=== PATIENT | male | born 1955 | race Caucasian/White ===

== ENCOUNTER 2020-09-05 08:43 | Inpatient (IN) | payer MEDICARE, BC ==
[2020-08-29 13:43] LABS: LYMPHOCYTES # (AUTO) 1.7 X10'3 (1.1-4.8); PRE OP HEMOGLOBIN 14.9 g/dL (14.0-17.9); RED CELL DISTRIBUTION WIDTH 13.5 % (11.5-14.5)
[2020-08-29 13:45] LABS: BASOPHILS % (AUTO) 0.3 % (0-1); EOSINOPHILS # (AUTO) 0.1 X10'3 (0-0.9); EOSINOPHILS % (AUTO) 0.4 % (0-6); LYMPHOCYTES % (AUTO) 10.8 % (21-51); MEAN CORPUSCULAR HEMOGLOBIN 30.4 PG (27.0-31.0); MEAN CORPUSCULAR HGB CONC 33.8 g/dL (33.0-36.5); MEAN CORPUSCULAR VOLUME 89.9 FL (78-98); MEAN PLATELET VOLUME 7.5 FL (7.4-10.4); MONOCYTES % (AUTO) 6.4 % (2-12); NEUTROPHILS # (AUTO) 12.9 X10'3 (1.8-7.7); NEUTROPHILS % (AUTO) 82.1 % (42-75); PRE OP PLATELET COUNT 221 X10'3 (140-440)
[2020-08-29 13:57] LABS: ALBUMIN 4.2 G/DL (3.4-5.0); ALBUMIN/GLOBULIN RATIO 1.2 (1.1-1.5); ALKALINE PHOSPHATASE 70 IU/L (46-116); BLOOD UREA NITROGEN 16 MG/DL (7-18); BUN/CREATININE RATIO 15.5 (5.4-32.0); CALCIUM 8.9 MG/DL (8.5-10.1); CHLORIDE 106 MMOL/L (99-107); CREATININE 1.03 MG/DL (0.60-1.10); PRE OP ALT 23 U/L (30-65); PRE OP ANION GAP 9 (8-16); PRE OP AST 16 U/L (10-37); PRE OP BILIRUB, TOTAL 0.6 MG/DL (0.0-1.0); PRE OP GLUCOSE 96 MG/DL (70-104); PRE OP SODIUM 143 MMOL/L (135-145); TOTAL CARBON DIOXIDE 28.5 MMOL/L (24-32); TOTAL PROTEIN 7.7 G/DL (6.4-8.2); eGFR 72 ML/MIN
[2020-09-02 08:58] LABS: BASOPHILS # (AUTO) 0.1 X10'3 (0-0.2); BASOPHILS % (AUTO) 0.5 % (0-1); EOSINOPHILS # (AUTO) 0.1 X10'3 (0-0.9); EOSINOPHILS % (AUTO) 1.6 % (0-6); LYMPHOCYTES # (AUTO) 2.3 X10'3 (1.1-4.8); LYMPHOCYTES % (AUTO) 25.3 % (21-51); MEAN CORPUSCULAR HEMOGLOBIN 30.7 PG (27.0-31.0); MEAN CORPUSCULAR HGB CONC 34.2 g/dL (33.0-36.5); MEAN CORPUSCULAR VOLUME 89.9 FL (78-98); MEAN PLATELET VOLUME 7.3 FL (7.4-10.4); MONOCYTES # (AUTO) 0.8 X10'3 (0-0.9); MONOCYTES % (AUTO) 9.2 % (2-12); NEUTROPHILS # (AUTO) 5.8 X10'3 (1.8-7.7); NEUTROPHILS % (AUTO) 63.4 % (42-75); PRE OP HEMATOCRIT 44.2 % (42.0-52.0); PRE OP HEMOGLOBIN 15.1 g/dL (14.0-17.9); PRE OP PLATELET COUNT 220 X10'3 (140-440); RED BLOOD COUNT 4.92 X10'6 (4.70-6.10); RED CELL DISTRIBUTION WIDTH 13.4 % (11.5-14.5)
[2020-09-05] VITALS (16 sets, daily range): BP systolic 143–168; BP diastolic 78–100
[~2020-09-05] VITALS: Ht 177.8 cm; Wt 85.7 kg
[~2020-09-05 08:43] MED LIST: ALLO100T PO; AMIT10TA6 PO; ASPI-1265 PO; ATOR10TA70 PO; BAC10T PO; DULO60CA65 PO; GABA300T25 PO; IBUP-1984 PO; LOSA100T57 PO; MELO-102 PO; OMEP40CA13 PO; PSYL3.4P5 PO; TEST5GEL2 TOP; ZOLP5TAB8 PO; ceFAZolin 2gm in dextrose, iso 50 ML IV ONE; famotidine 20mg tablet PO ONE; ringers solution, lacted 1,000 ML IV SCH; tranexamic acid inj. 860 MG in normal saline 100ml IV soln 100 ML IV ONE; vancomycin 1,500 MG in NS 300ml IV soln IV ONE
[2020-09-05] MEDS ORDERED: ondansetron/PF 4mg/2ml inj IV PRN ×2 (10:20→14:15)
[2020-09-05] MEDS ORDERED: proCHLORperazine 10 MG/2 ml inj IV PRN (10:20)
[2020-09-05] MEDS ORDERED: morphine 2 MG/ML inj. syringe IV PRN (10:20)
[2020-09-05] MEDS ORDERED: morphine 4 MG/ML inj SYRINge IV PRN (10:20)
[2020-09-05] MEDS ORDERED: meperidine/PF 25mg/ml syringe IV PRN ×3 (10:20)
[2020-09-05] MEDS ORDERED: ringers solution, lacted 1,000 ML IV SCH (10:20)
[2020-09-05 10:44] LABS: BASOPHILS % (AUTO) 0.5 % (0-1); EOSINOPHILS # (AUTO) 0.1 X10'3 (0-0.9); EOSINOPHILS % (AUTO) 0.6 % (0-6); HEMATOCRIT 41.3 % (42.0-52.0); HEMOGLOBIN 14.2 g/dl (14.0-17.9); LYMPHOCYTES # (AUTO) 1.8 X10'3 (1.1-4.8); LYMPHOCYTES % (AUTO) 19.5 % (21-51); MEAN CORPUSCULAR HEMOGLOBIN 30.7 PG (27.0-31.0); MEAN CORPUSCULAR HGB CONC 34.3 g/dL (33.0-36.5); MEAN CORPUSCULAR VOLUME 89.5 FL (78-98); MEAN PLATELET VOLUME 7.4 FL (7.4-10.4); MONOCYTES # (AUTO) 0.7 X10'3 (0-0.9); NEUTROPHILS # (AUTO) 6.6 X10'3 (1.8-7.7); NEUTROPHILS % (AUTO) 71.4 % (42-75); PLATELET COUNT 187 X10'3 (140-440); RED BLOOD COUNT 4.61 X10'6 (4.70-6.10); RED CELL DISTRIBUTION WIDTH 13.8 % (11.5-14.5); WHITE BLOOD COUNT 9.2 X10'3 (4.5-11.0)
[2020-09-05] MEDS ORDERED: HYDROcodone/acetaminophen 10/325mg tab PO ONE (11:00)
[2020-09-05] MEDS ORDERED: ROPIVAcaine 0.5% (5mg/ml) 30ml vial ONE ×2 (11:13→11:46)
[2020-09-05] MEDS ORDERED: ketorolac trometh. 30mg/ml inj. ONE (11:13)
[2020-09-05] MEDS ORDERED: MIDAZolam 5mg/5ml vial ONE (11:46)
[2020-09-05] MEDS ORDERED: propofol inj 20 ML IV ONE (11:46)
[2020-09-05] MEDS ORDERED: fentaNYL/PF 50MCG/1 ML 2ML syringe ONE (11:46)
[2020-09-05] MEDS ORDERED: LIDOcaine 1%/PF 5ML 10 MG/ML VIAL ONE (12:07)
[2020-09-05] MEDS ORDERED: sevoflurane 250ml liquid IH ONE (12:07)
[2020-09-05] MEDS ORDERED: dexamethasone sod phosphate 4mg/ml inj. ONE (12:48)
[2020-09-05] MEDS ORDERED: ondansetron/PF 4mg/2ml inj ONE (12:48)
[2020-09-05] MEDS ORDERED: ROPIVAcaine 0.2% (10 MG/5 ML) BOLUS INJECTION INTERSCALE PRN (14:00)
[2020-09-05] MEDS ORDERED: ROPIVAcaine 0.2%/PF PUMP/bolus 550 ML INTERSCALE SCH (14:00)
[2020-09-05] MEDS ORDERED: bisacodyl 10mg suppository rectal RC PRN (14:15)
[2020-09-05] MEDS ORDERED: oxyCODONE IR 5mg (immed. release) tablet PO PRN (14:15)
[2020-09-05] MEDS ORDERED: HYDROmorphone 1 mg/ml syringe IV PRN (14:15)
[2020-09-05] MEDS ORDERED: HYDROmorphone inj. 0.5 MG/0.5 ML DISP.SYRIN IV PRN (14:15)
[2020-09-05] MEDS ORDERED: tranexamic acid inj. 0 MG in normal saline 100ml IV soln 100 ML IV ONE (14:15)
[2020-09-05] MEDS ORDERED: diphenhydrAMINE 25mg capsule PO PRN ×2 (14:15)
[2020-09-05] MEDS ORDERED: magnesium hydroxide 30ml (MOM) UD suspension PO PRN (14:15)
[2020-09-05] MEDS ORDERED: acetaminophen 325mg tablet PO PRN (14:15)
--- NOTE | 2020-09-05 14:30 | NUR ---
Received from OR via BED , accompanied by Anesthesiologist DR ARCOS and report given by Anesthesiolgist. PATIENT A&OX4, DENIES PAIN, V/S WNL, CSM INTACT, 20G PIV LUE, SCD ON, DRESSING TO RIGHT SHOULDER CDI WITH SLING AND ONQ BALL AT 4ML/HR.
--- NOTE | 2020-09-05 15:10 | NUR ---
PATIENT A&OX4, DENIES PAIN, V/S WNL, CSM INTACT, 20G PIV LUE, SCD ON, DRESSING TO RIGHT SHOULDER CDI WITH SLING AND ONQ BALL AT 4ML/HR. PATIENT TAKEN TO 4012B WITH ALL BELONGINGS AND REPORT GIVEN TO [employer] MANAGER WHO HAS TAKEN OVER PATIENT CARE.
[2020-09-05] MEDS: ceFAZolin/D5W- 1GM premix 50 ML IV SCH (15:34)
[2020-09-05] MEDS: potassium cl 20mEq in 1/2 NS 1,000 ML IV SCH (15:34)
[2020-09-05] MEDS ORDERED: vancomycin/NS 1 GM ADD-VANTAGE 250 ML IV SCH (20:00)
[2020-09-05] MEDS ORDERED: losartan 50mg tablet PO SCH (20:45)
[2020-09-05] MEDS ORDERED: atorvastatin 10mg tablet PO SCH (20:45)
[2020-09-05] MEDS ORDERED: gabapentin 300mg capsule PO SCH (20:45)
[2020-09-05] MEDS ORDERED: zolpidem 5mg tablet PO SCH (21:00)
[2020-09-05] MEDS ORDERED: sennosides 8.6mg tablet PO SCH (21:00)
[2020-09-05] MEDS: amitriptyline 10mg tablet PO SCH ×2 (21:00→21:12)
[2020-09-05] MEDS: baclofen 10mg tablet PO SCH (21:10)
[2020-09-05] MEDS: acetaminophen 325mg tablet PO SCH (21:10)
[2020-09-06] MEDS: ceFAZolin/D5W- 1GM premix 50 ML IV SCH (00:38)
[2020-09-06] MEDS: potassium cl 20mEq in 1/2 NS 1,000 ML IV SCH (00:38)
[2020-09-06] MEDS: baclofen 10mg tablet PO SCH ×2 (01:50→09:03)
[2020-09-06] MEDS: acetaminophen 325mg tablet PO SCH ×2 (01:50→09:04)
[2020-09-06 02:00] VITALS: BP 166/100
[2020-09-06] MEDS: oxyCODONE IR 5mg (immed. release) tablet PO PRN ×2 (05:49→10:52)
[2020-09-06 06:00] VITALS: BP 164/115
--- NOTE | 2020-09-06 06:24 | NUR ---
Report given to Magalie CAMPO.
--- NOTE | 2020-09-06 06:36 | NUR ---
Patient in room ORTHO 4012. I have received report from Alvina CAMPO and had the opportunity to ask questions and assume patient care.
[2020-09-06 07:02] VITALS: BP 126/82
[2020-09-06 07:03] VITALS: BP 90/52
[2020-09-06 07:04] VITALS: BP 136/77
[2020-09-06 07:24] LABS: BASOPHILS % (AUTO) 0 % (0-1); EOSINOPHILS % (AUTO) 0 % (0-6); HEMATOCRIT 38.7 % (42.0-52.0); LYMPHOCYTES # (AUTO) 1.9 X10'3 (1.1-4.8); LYMPHOCYTES % (AUTO) 10.6 % (21-51); MEAN CORPUSCULAR HEMOGLOBIN 30.3 PG (27.0-31.0); MEAN CORPUSCULAR HGB CONC 33.5 g/dL (33.0-36.5); MEAN CORPUSCULAR VOLUME 90.5 FL (78-98); MEAN PLATELET VOLUME 7.6 FL (7.4-10.4); MONOCYTES # (AUTO) 1.7 X10'3 (0-0.9); MONOCYTES % (AUTO) 9.5 % (2-12); NEUTROPHILS # (AUTO) 14.5 X10'3 (1.8-7.7); NEUTROPHILS % (AUTO) 79.9 % (42-75); PLATELET COUNT 256 X10'3 (140-440); RED BLOOD COUNT 4.28 X10'6 (4.70-6.10); RED CELL DISTRIBUTION WIDTH 14.1 % (11.5-14.5); WHITE BLOOD COUNT 18.2 X10'3 (4.5-11.0)
[2020-09-06 07:40] LABS: ANION GAP 10 (8-16); CHLORIDE 108 MMOL/L (99-107); SODIUM 144 MMOL/L (135-145); TOTAL CARBON DIOXIDE 25.8 MMOL/L (24-32)
[2020-09-06] MEDS ORDERED: Meloxicam 15 MG TAB PO SCH (08:00)
[2020-09-06] MEDS ORDERED: duloxetine 30mg CAPSULE.DR PO SCH (08:00)
[2020-09-06] MEDS ORDERED: pantoprazole 40mg Tablet.DR PO SCH (08:00)
[2020-09-06] MEDS ORDERED: testosterone 5gm gel packet TD SCH (08:00)
[2020-09-06] MEDS ORDERED: atorvastatin 10mg tablet PO SCH (08:00)
[2020-09-06] MEDS ORDERED: losartan 50mg tablet PO SCH (08:00)
[2020-09-06] MEDS ORDERED: psyllium seed 3.4 gm packet PO SCH (08:00)
[2020-09-06] MEDS ORDERED: amitriptyline 10mg tablet PO SCH (08:00)
[2020-09-06] MEDS ORDERED: allopurinol 100mg tablet PO SCH (08:00)
[2020-09-06] MEDS ORDERED: gabapentin 300mg capsule PO SCH (08:00)
[2020-09-06] MEDS ORDERED: aspirin 325mg tablet PO SCH (08:30)
[2020-09-06 10:00] VITALS: BP 155/84
[2020-09-06] MEDS ORDERED: ASPI-1 PO (10:00)
--- NOTE | 2020-09-06 11:18 | NUR ---
Joint replacement consult: Pt s/p R TSA PO 100% regular breakfast this AM so far good PO post-op. LBM 09/04. No nutrition concerns at this time. Will monitor for additional protein needs post-op. To f/u 09/10 for initial assessment. Addendum: 09/06/20 at [address] Amended: Links added.
--- NOTE | 2020-09-06 11:56 | NUR ---
Patient stable for discharge home today. All DC instructions given to patient and questions answered. IV removed with cannula intact. All belongings send with patient.
[2020-09-07] MEDS ORDERED: acetaminophen 325mg tablet PO PRN (14:15)
== END 2020-09-06 11:30 | disposition home or self-care (01) | DRG 483 ==
LOC: UNDOADMIN 08:43 → PAS IN 08:43 → EDSTATUS 12:30 → PAS IN 14:14 → ORTHO 4S 15:19 → PAS IN 15:19
PROVIDERS: ADMIT Orthopaedic Surgery; ATTEND Orthopaedic Surgery
PROC: 3E0T3BZ Introduction of Anesthetic Agent into Peripheral Nerves and Plexi, Percutaneous Approach (ICD-10-PCS; 2020-09-05)
PROC: 0RRK00Z Replacement of Left Shoulder Joint with Reverse Ball and Socket Synthetic Substitute, Open Approach (ICD-10-PCS; principal; 2020-09-05 12:07)
DX: M19.012 Primary osteoarthritis, left shoulder (principal); M25.512 Pain in left shoulder; M75.102 Unspecified rotator cuff tear or rupture of left shoulder, not specified as traumatic; M75.22 Bicipital tendinitis, left shoulder
CPT/HCPCS: 36415; 80051; 80053; 82948; 85025; 87081; 87635; 93005; 97110; 97116; 97161; 97530; A4618; A7000; C1776; G0378; J0690; J1100; J1885; J2250; J2405; J2704; J2795; J3010; J3370; J3480; J7040; J7120

== ENCOUNTER 2021-03-06 08:12 | Inpatient (IN) | payer MEDICARE, BC ==
[2021-02-28 12:25] LABS: BASOPHILS % (AUTO) 0.4 % (0-1); EOSINOPHILS # (AUTO) 0.1 X10'3 (0-0.9); EOSINOPHILS % (AUTO) 1.4 % (0-6); LYMPHOCYTES # (AUTO) 1.9 X10'3 (1.1-4.8); LYMPHOCYTES % (AUTO) 19.1 % (21-51); MEAN PLATELET VOLUME 7.3 FL (7.4-10.4); MONOCYTES # (AUTO) 0.7 X10'3 (0-0.9); MONOCYTES % (AUTO) 7.5 % (2-12); NEUTROPHILS % (AUTO) 71.6 % (42-75); PRE OP HEMATOCRIT 42.2 % (42.0-52.0); PRE OP HEMOGLOBIN 14.4 g/dL (14.0-17.9); PRE OP PLATELET COUNT 217 X10'3 (140-440); RED BLOOD COUNT 4.64 X10'6 (4.70-6.10); RED CELL DISTRIBUTION WIDTH 14.9 % (11.5-14.5)
[2021-02-28 12:40] LABS: ALBUMIN/GLOBULIN RATIO 1.2 (1.1-1.5); ALKALINE PHOSPHATASE 79 IU/L (46-116); BLOOD UREA NITROGEN 14 MG/DL (7-18); BUN/CREATININE RATIO 14.9 (5.4-32.0); CALCIUM 8.5 MG/DL (8.5-10.1); CHLORIDE 104 MMOL/L (99-107); CREATININE 0.94 MG/DL (0.60-1.10); PRE OP ALT 17 U/L (30-65); PRE OP ANION GAP 9 (8-16); PRE OP AST 17 U/L (10-37); PRE OP BILIRUB, TOTAL 0.5 MG/DL (0.0-1.0); PRE OP GLUCOSE 95 MG/DL (70-104); PRE OP POTASSIUM 3.8 MMOL/L (3.4-5.1); PRE OP SODIUM 142 MMOL/L (135-145); TOTAL CARBON DIOXIDE 29.4 MMOL/L (24-32); TOTAL PROTEIN 7.4 G/DL (6.4-8.2); eGFR 80 ML/MIN
[2021-03-06] VITALS (22 sets, daily range): BP systolic 121–170; BP diastolic 74–95
[~2021-03-06] VITALS: Ht 175.3 cm; Wt 85.5 kg
[~2021-03-06 08:12] MED LIST changes: -ASPI-1265 PO; +ASPI-611 PO; +GABA300C PO; -GABA300T25 PO; -ceFAZolin 2gm in dextrose, iso 50 ML IV ONE; +cefazolin/dext.iso 2gm/100ml IV ONE; +tranexamic acid 650mg tablet PO ONE; -tranexamic acid inj. 860 MG in normal saline 100ml IV soln 100 ML IV ONE
[2021-03-06] MEDS ORDERED: norco PO (11:14)
[2021-03-06] MEDS ORDERED: ROPIVAcaine 0.5% (5mg/ml) 30ml vial ONE ×2 (11:53→12:05)
[2021-03-06] MEDS ORDERED: ketorolac trometh. 30mg/ml inj. ONE (11:53)
[2021-03-06] MEDS ORDERED: fentaNYL/PF 50MCG/1 ML 2ML syringe ONE (12:01)
[2021-03-06] MEDS ORDERED: MIDAZolam 1 MG/ML 5ML VIAL ONE (12:02)
[2021-03-06] MEDS ORDERED: propofol inj 20 ML IV ONE (12:06)
[2021-03-06] MEDS ORDERED: morphine 4 MG/ML inj SYRINge IV PRN (13:40)
[2021-03-06] MEDS ORDERED: ondansetron/PF 4mg/2ml inj IV PRN ×2 (13:40→14:40)
[2021-03-06] MEDS ORDERED: ringers solution, lacted 1,000 ML IV SCH (13:40)
[2021-03-06] MEDS ORDERED: proCHLORperazine 10 MG/2 ml inj IV PRN (13:40)
[2021-03-06] MEDS ORDERED: meperidine/PF 25mg/ml syringe IV PRN ×3 (13:40)
[2021-03-06] MEDS ORDERED: morphine 2 MG/ML inj. syringe IV PRN (13:40)
[2021-03-06] MEDS ORDERED: ROPIVAcaine 0.2% (10 MG/5 ML) BOLUS INJECTION INTERSCALE PRN (13:40)
[2021-03-06] MEDS ORDERED: ROPIVAcaine 0.2%/PF PUMP/bolus 545 ML INTERSCALE SCH (13:40)
[2021-03-06] MEDS ORDERED: phenylephrine 10mg/ml inj. ONE (14:24)
[2021-03-06] MEDS ORDERED: dexamethasone sod phosphate 4mg/ml inj. ONE (14:24)
--- NOTE | 2021-03-06 14:27 | NUR ---
Received from OR via , accompanied by Anesthesiologist DR BOWMAN and report given by Anesthesiolgist. AWAKENS TO VOICE. VITALS STABLE. DRESSING DI. YOMI PAIN. LUE TN A SIMPLE SLING. FINGERS WARM AND PINK.
[2021-03-06] MEDS ORDERED: bisacodyl 10mg suppository rectal RC PRN (14:40)
[2021-03-06] MEDS ORDERED: diphenhydrAMINE 25mg capsule PO PRN ×2 (14:40)
[2021-03-06] MEDS ORDERED: ibuprofen 200mg tablet PO PRN (14:40)
[2021-03-06] MEDS ORDERED: HYDROmorphone 1 mg/ml syringe IV PRN (14:40)
[2021-03-06] MEDS ORDERED: acetaminophen 325mg tablet PO PRN (14:40)
[2021-03-06] MEDS ORDERED: magnesium hydroxide 30ml (MOM) UD suspension PO PRN (14:40)
[2021-03-06] MEDS ORDERED: HYDROmorphone inj. 0.5 MG/0.5 ML DISP.SYRIN IV PRN (14:40)
[2021-03-06] MEDS ORDERED: oxyCODONE IR 5mg (immed. release) tablet PO PRN (14:40)
[2021-03-06] MEDS: potassium cl 20mEq in 1/2 NS 1,000 ML IV SCH (14:40)
--- NOTE | 2021-03-06 15:27 | NUR ---
Report called to receiving nurse. Transferred via BED Belongings . Special Issues communicated to receiving nurse. AWAKE AND ORIENTED. VITALS STABLE. DRESSING DI. YOMI PAIN. TO ORTHO RM 4026S AT THIS TIME.
[2021-03-06] MEDS: ceFAZolin/D5W- 1GM premix 50 ML IV SCH (16:25)
--- NOTE | 2021-03-06 18:30 | NUR ---
Problems reprioritized. Patient report given, questions answered & plan of care reviewed with Leslie CAMPO.
--- NOTE | 2021-03-06 18:38 | NUR ---
Patient in room ORTHO 4023. I have received report from Gretta CAMPO and had the opportunity to ask questions and assume patient care. Pt is sitting up in bed with at bedside. Pt has no signs of distress, will continue to monitor.
[2021-03-06] MEDS ORDERED: vancomycin/NS 1 GM ADD-VANTAGE 250 ML IV SCH (20:00)
[2021-03-06] MEDS: baclofen 10mg tablet PO SCH (20:07)
[2021-03-06] MEDS: acetaminophen 325mg tablet PO SCH (20:08)
[2021-03-06] MEDS: oxyCODONE IR 5mg (immed. release) tablet PO PRN (20:09)
[2021-03-06] MEDS ORDERED: sennosides 8.6mg tablet PO SCH (21:00)
[2021-03-06] MEDS ORDERED: zolpidem 5mg tablet PO SCH (21:00)
[2021-03-07] MEDS: ceFAZolin/D5W- 1GM premix 50 ML IV SCH (00:22)
[2021-03-07] MEDS: potassium cl 20mEq in 1/2 NS 1,000 ML IV SCH ×2 (00:25→07:35)
[2021-03-07 02:00] VITALS: BP 125/78
[2021-03-07] MEDS: baclofen 10mg tablet PO SCH ×2 (02:00→07:24)
[2021-03-07] MEDS: acetaminophen 325mg tablet PO SCH ×2 (02:00→07:25)
[2021-03-07 06:02] LABS: BASOPHILS % (AUTO) 0.1 % (0-1); EOSINOPHILS % (AUTO) 0 % (0-6); HEMOGLOBIN 12.9 g/dl (14.0-17.9); LYMPHOCYTES # (AUTO) 2.4 X10'3 (1.1-4.8); LYMPHOCYTES % (AUTO) 10.5 % (21-51); MEAN CORPUSCULAR HGB CONC 34.1 g/dL (33.0-36.5); MEAN CORPUSCULAR VOLUME 90.9 FL (78-98); MEAN PLATELET VOLUME 7.7 FL (7.4-10.4); MONOCYTES # (AUTO) 2.1 X10'3 (0-0.9); MONOCYTES % (AUTO) 9.2 % (2-12); NEUTROPHILS # (AUTO) 18.4 X10'3 (1.8-7.7); NEUTROPHILS % (AUTO) 80.2 % (42-75); PLATELET COUNT 268 X10'3 (140-440); RED BLOOD COUNT 4.18 X10'6 (4.70-6.10); RED CELL DISTRIBUTION WIDTH 14.6 % (11.5-14.5); WHITE BLOOD COUNT 22.9 X10'3 (4.5-11.0)
--- NOTE | 2021-03-07 06:15 | NUR ---
Problems reprioritized. Patient report given, questions answered & plan of care reviewed with Gretta CAMPO.
--- NOTE | 2021-03-07 06:20 | NUR ---
Patient in room ORTHO 4023. I have received report from ALBER Nelson and had the opportunity to ask questions and assume patient care.
[2021-03-07 06:21] LABS: ANION GAP 12 (8-16); CHLORIDE 107 MMOL/L (99-107); SODIUM 142 MMOL/L (135-145); TOTAL CARBON DIOXIDE 23.4 MMOL/L (24-32)
[2021-03-07] MEDS: oxyCODONE IR 5mg (immed. release) tablet PO PRN (06:21)
[2021-03-07 06:28] VITALS: BP 184/95
[2021-03-07] MEDS ORDERED: allopurinol 100mg tablet PO SCH (08:00)
[2021-03-07] MEDS ORDERED: duloxetine 30mg CAPSULE.DR PO SCH (08:00)
[2021-03-07] MEDS ORDERED: psyllium seed 3.4 gm packet PO SCH (08:00)
[2021-03-07] MEDS ORDERED: pantoprazole 40mg Tablet.DR PO SCH (08:00)
[2021-03-07] MEDS ORDERED: aspirin 81mg tab.chew PO SCH (08:00)
[2021-03-07] MEDS ORDERED: MELOXICAM 15 MG PO SCH (08:00)
[2021-03-07] MEDS ORDERED: amitriptyline 10mg tablet PO SCH (08:00)
[2021-03-07] MEDS ORDERED: atorvastatin 10mg tablet PO SCH (08:00)
[2021-03-07] MEDS ORDERED: losartan 50mg tablet PO SCH (08:00)
[2021-03-07] MEDS ORDERED: gabapentin 300mg capsule PO SCH (08:00)
[2021-03-07] MEDS ORDERED: testosterone 5gm gel packet TD SCH (08:00)
[2021-03-07] MEDS ORDERED: aspirin 325mg tablet PO SCH (08:30)
[2021-03-07 10:04] LABS: TOTAL CELLS COUNTED 100
[2021-03-07 10:05] LABS: PLATELET ESTIMATE NORMAL
[2021-03-07 10:28] LABS: BASOPHILS % (AUTO) 0.2 % (0-1); EOSINOPHILS % (AUTO) 0 % (0-6); HEMATOCRIT 34.6 % (42.0-52.0); HEMOGLOBIN 11.9 g/dl (14.0-17.9); LYMPHOCYTES # (AUTO) 2.6 X10'3 (1.1-4.8); LYMPHOCYTES % (AUTO) 15.3 % (21-51); MEAN CORPUSCULAR HEMOGLOBIN 31.3 PG (27.0-31.0); MEAN CORPUSCULAR HGB CONC 34.4 g/dL (33.0-36.5); MEAN PLATELET VOLUME 7.5 FL (7.4-10.4); MONOCYTES # (AUTO) 1.7 X10'3 (0-0.9); MONOCYTES % (AUTO) 9.9 % (2-12); NEUTROPHILS # (AUTO) 12.9 X10'3 (1.8-7.7); NEUTROPHILS % (AUTO) 74.6 % (42-75); PLATELET COUNT 256 X10'3 (140-440); RED CELL DISTRIBUTION WIDTH 14.5 % (11.5-14.5); WHITE BLOOD COUNT 17.2 X10'3 (4.5-11.0)
[2021-03-07 11:04] VITALS: BP 155/88
--- NOTE | 2021-03-07 12:24 | NUR ---
Joint Surgery Consult: Pt admit s/p L shoulder surgery seen by ROXANNE for written/verbal high protein ed w/ Ensure ONS coupons and RD contact information provided. Pt denies and questions/concerns at this time. ROXANNE encouraged pt to contact dietitian's office if further questions/concerns. Addendum: 03/07/21 at [address] Amended: Links added.
[2021-03-07] MEDS ORDERED: ASPI-1 PO (12:25)
--- NOTE | 2021-03-07 13:30 | NUR ---
Patient discharged home with , dc instructions given to him and his . Patient has follow up already scheduled with Dr. Valenzuela and pain medications and aspirin set up out patient. Discharged via wheelchair with no complications
[2021-03-08] MEDS ORDERED: acetaminophen 325mg tablet PO PRN (14:40)
--- NOTE | 2021-03-08 15:38 | NUR ---
CASE MANAGEMENT DISCHARGE FOLLOW UP: Spoke with pt via telephone. Reports that he is doing well, describes shoulder as sore/tolerable; denies CP, SOB, fever/chills, s/sx of infxn. Pt states dressing on shoulder is CDI. Taking tylenol primarily for pain control, other pain pill if pain is too much, verbalizes understanding that pain pill also has tylenol in it and to not take more than 4g in 24 hrs, pt verbalizes understanding. Verbalizes understanding of s/sx requiring further evaluation/emergent assistance. Verbalizes understanding of new and current medications. Verbalizes compliance with MD discharge instructions. Verbalizes understanding of the importance in making/keeping follow-up appointments, has f/u appt scheduled. Pt states that he recently had his other shoulder done so this is "old hat" for him. States no further questions/concerns at this time.
== END 2021-03-07 13:50 | disposition home or self-care (01) | DRG 483 ==
LOC: UNDOADMIN 08:12 → PAS IN 08:12 → ORTHO 4S 15:30 → PAS IN 15:30
PROVIDERS: ADMIT Orthopaedic Surgery; ATTEND Orthopaedic Surgery
PROC: 0LS40ZZ Reposition Left Upper Arm Tendon, Open Approach (ICD-10-PCS; 2021-03-06)
PROC: 3E0T3BZ Introduction of Anesthetic Agent into Peripheral Nerves and Plexi, Percutaneous Approach (ICD-10-PCS; 2021-03-06)
PROC: 0RRK00Z Replacement of Left Shoulder Joint with Reverse Ball and Socket Synthetic Substitute, Open Approach (ICD-10-PCS; principal; 2021-03-06 12:02)
DX: M19.012 Primary osteoarthritis, left shoulder (principal); D62 Acute posthemorrhagic anemia; M75.122 Complete rotator cuff tear or rupture of left shoulder, not specified as traumatic; Z79.899 Other long term (current) drug therapy; Z79.82 Long term (current) use of aspirin; M25.512 Pain in left shoulder; G89.4 Chronic pain syndrome; Z87.891 Personal history of nicotine dependence; K21.9 Gastro-esophageal reflux disease without esophagitis; I10 Essential (primary) hypertension
CPT/HCPCS: 36415; 80051; 80053; 82948; 85007; 85025; 87081; 97110; 97161; 97530; A4618; A7000; C1776; G0378; J0690; J1100; J1885; J2250; J2370; J2704; J2795; J3010; J3370; J3480; J7040; J7120